=== PATIENT | male | born 1980 | race Hispanic/Latino ===

== ENCOUNTER 2018-07-01 01:45 | Emergency (ER) | payer BC, SELFPAY | END 2018-07-01 02:34 | disposition home or self-care (01) | LOC: ERS 01:45 | DX: T65.891A Toxic effect of other specified substances, accidental (unintentional), initial encounter (principal); L25.3 Unspecified contact dermatitis due to other chemical products; V43.52XA Car driver injured in collision with other type car in traffic accident, initial encounter; W22.11XA Striking against or struck by driver side automobile airbag, initial encounter | CPT/HCPCS: 99284 ==

== ENCOUNTER 2019-01-06 22:37 | Emergency (ER) | payer OTHER, SELFPAY ==
[2019-01-06] MEDS ORDERED: Adacel (T-DAP) 0.5 ML SYRINGE ONE (22:41)
== END 2019-01-06 23:22 | disposition home or self-care (01) ==
LOC: ERS 22:37
DX: S01.112A Laceration without foreign body of left eyelid and periocular area, initial encounter (principal); S01.81XA Laceration without foreign body of other part of head, initial encounter; W26.8XXA Contact with other sharp object(s), not elsewhere classified, initial encounter; Y99.0 Civilian activity done for income or pay
CPT/HCPCS: 90715; 99282

== ENCOUNTER 2022-08-15 11:01 | Emergency (ER) | payer OTHER, SELFPAY | END 2022-08-15 12:25 | disposition home or self-care (01) | LOC: ERS 11:01 | DX: S93.602A Unspecified sprain of left foot, initial encounter (principal); X50.1XXA Overexertion from prolonged static or awkward postures, initial encounter ==